=== PATIENT | male | born 1965 | race Native Hawaiian/Other Pacific Islander ===

== ENCOUNTER 2016-12-02 06:58 | Outpatient (CLI) | payer BC ==
[~2016-12-02 06:58] MED LIST: ALLEGRA-D 2424 HOUR OR; DYMISTA1 SPR; ROSU10TA PO
== END 2016-12-02 19:45 | disposition home or self-care (01) ==
LOC: LABW 06:58
PROVIDERS: Nurse Practitioner Adult Health
DX: Z79.01 Long term (current) use of anticoagulants (principal); E78.2 Mixed hyperlipidemia; Z51.81 Encounter for therapeutic drug level monitoring
CPT/HCPCS: 36415; 80061; 80076

== ENCOUNTER 2017-03-17 08:14 | Outpatient (CLI) | payer BC ==
[2017-03-17 12:13] LABS: PLATELET COUNT 242 K/uL (142-355)
[2017-03-17 12:27] LABS: PARTIAL THROMBOPLASTIN TIME 24.8 SECONDS (24.5-33.6)
[2017-03-17 12:35] LABS: POTASSIUM 3.8 mmol/L (3.6-5.2); SODIUM 140 mmol/L (136-145)
== END 2017-03-17 09:15 | disposition home or self-care (01) ==
LOC: LABW 08:14
PROVIDERS: Internal Medicine
DX: E78.00 Pure hypercholesterolemia, unspecified (principal); Z12.5 Encounter for screening for malignant neoplasm of prostate; Z83.49 Family history of other endocrine, nutritional and metabolic diseases
CPT/HCPCS: 36415; 80053; 81000; 82103; 84153; 84443; 85027; 85610; 85730

== ENCOUNTER 2017-05-26 10:20 | Outpatient (CLI) | payer BC ==
[2017-05-26 10:41] LABS: PLATELET COUNT 139 K/uL (142-355)
[2017-05-26 10:53] LABS: POTASSIUM 3.6 mmol/L (3.6-5.2)
== END 2017-05-26 19:06 | disposition home or self-care (01) ==
LOC: LABW 10:20
PROVIDERS: Internal Medicine
DX: M79.1 Myalgia (principal); R31.9 Hematuria, unspecified
CPT/HCPCS: 36415; 80053; 81000; 85027; 85651; 86618; 87088

== ENCOUNTER 2017-06-14 13:48 | Outpatient (CLI) | payer BC ==
[2017-06-14 14:15] LABS: PLATELET COUNT 357 K/uL (142-355)
[2017-06-14 18:23] LABS: POTASSIUM 3.7 mmol/L (3.6-5.2); SODIUM 137.9 mmol/L (136-145)
== END 2017-06-14 19:04 | disposition home or self-care (01) ==
LOC: LABW 13:48
PROVIDERS: Internal Medicine
DX: M79.1 Myalgia (principal); R31.9 Hematuria, unspecified
CPT/HCPCS: 36415; 80053; 85027; 85651; 86618

== ENCOUNTER 2017-12-28 07:39 | Outpatient (CLI) | payer BC | END 2017-12-28 19:10 | disposition home or self-care (01) | LOC: LABW 07:39 | PROVIDERS: Nurse Practitioner Adult Health | DX: E78.2 Mixed hyperlipidemia (principal); Z79.899 Other long term (current) drug therapy; Z51.81 Encounter for therapeutic drug level monitoring | CPT/HCPCS: 36415; 80061; 80076 ==

== ENCOUNTER 2018-06-14 07:16 | Outpatient (CLI) | payer BC ==
[2018-06-14 08:11] LABS: PLATELET COUNT 256 K/uL (142-355)
[2018-06-14 08:37] LABS: POTASSIUM 3.9 mmol/L (3.6-5.2)
== END 2018-06-14 19:39 | disposition home or self-care (01) ==
LOC: LABW 07:16
PROVIDERS: Internal Medicine
DX: R78.2 Finding of cocaine in blood (principal); Z79.899 Other long term (current) drug therapy; Z12.5 Encounter for screening for malignant neoplasm of prostate; E78.00 Pure hypercholesterolemia, unspecified
CPT/HCPCS: 36415; 80053; 80061; 81000; 82248; 84153; 84439; 84443; 85027

== ENCOUNTER 2018-11-05 07:16 | Outpatient (CLI) | payer BC | END 2018-11-05 20:45 | disposition home or self-care (01) | LOC: LABW 07:16 | PROVIDERS: Specialist | DX: E78.2 Mixed hyperlipidemia (principal); Z79.899 Other long term (current) drug therapy | CPT/HCPCS: 36415; 80061; 80076 ==

== ENCOUNTER 2019-05-09 07:29 | Outpatient (CLI) | payer BC ==
[2019-05-09 07:42] LABS: PLATELET COUNT 226 K/uL (142-355)
[2019-05-09 08:03] LABS: POTASSIUM 4.4 mmol/L (3.6-5.2)
== END 2019-05-09 23:47 | disposition home or self-care (01) ==
LOC: LABW 07:29 → LAB 07:29 → LABW 23:47
PROVIDERS: Internal Medicine
DX: E78.2 Mixed hyperlipidemia (principal); Z79.899 Other long term (current) drug therapy; I34.1 Nonrheumatic mitral (valve) prolapse; N40.0 Benign prostatic hyperplasia without lower urinary tract symptoms; E78.00 Pure hypercholesterolemia, unspecified
CPT/HCPCS: 80053; 80061; 80076; 81000; 84153; 84439; 84443; 85027

== ENCOUNTER 2019-12-02 06:48 | Outpatient (CLI) | payer BC | END 2019-12-02 19:09 | disposition home or self-care (01) | LOC: LABW 06:48 | PROVIDERS: Nurse Practitioner Adult Health | DX: E78.2 Mixed hyperlipidemia (principal); Z79.899 Other long term (current) drug therapy | CPT/HCPCS: 36415; 80061; 80076 ==

== ENCOUNTER 2020-12-10 06:34 | Outpatient (CLI) | payer BC | END 2020-12-10 21:41 | disposition home or self-care (01) | LOC: LABW 06:34 | PROVIDERS: ATTEND Internal Medicine | DX: E78.2 Mixed hyperlipidemia (principal); Z79.899 Other long term (current) drug therapy | CPT/HCPCS: 36415; 80061; 80076 ==

== ENCOUNTER 2021-12-06 07:12 | Outpatient (CLI) | payer BC | END 2021-12-06 19:06 | disposition home or self-care (01) | LOC: LABW 07:12 | PROVIDERS: ATTEND Nurse Practitioner Adult Health | DX: E78.2 Mixed hyperlipidemia (principal); Z79.899 Other long term (current) drug therapy | CPT/HCPCS: 36415; 80061; 80076 ==

== ENCOUNTER 2022-12-22 07:19 | Outpatient (CLI) | payer BC | END 2022-12-22 20:52 | disposition home or self-care (01) | LOC: LABW 07:19 | PROVIDERS: ATTEND Nurse Practitioner Adult Health | DX: E78.49 Other hyperlipidemia (principal); Z09 Encounter for follow-up examination after completed treatment for conditions other than malignant neoplasm | CPT/HCPCS: 36415; 80061; 80076 ==

== ENCOUNTER 2023-05-22 15:41 | Outpatient (CLI) | payer BC ==
[2023-05-22 16:20] LABS: PLATELET COUNT 283 K/uL (142-355)
[2023-05-22 16:33] LABS: POTASSIUM 4.1 mmol/L (3.6-5.2)
== END 2023-05-22 19:29 | disposition home or self-care (01) ==
LOC: RAD 15:41
PROVIDERS: ATTEND Internal Medicine
DX: U09.9 Post COVID-19 condition, unspecified (principal); I34.1 Nonrheumatic mitral (valve) prolapse
CPT/HCPCS: 36415; 80053; 80162; 83880; 84443; 85027; 85652

== ENCOUNTER 2023-05-23 10:21 | Outpatient (CLI) | payer BC | END 2023-05-23 19:14 | disposition home or self-care (01) | LOC: LABW 10:21 | PROVIDERS: ATTEND Internal Medicine | DX: U09.9 Post COVID-19 condition, unspecified (principal) | CPT/HCPCS: 36415; 82550; 84484 ==